=== PATIENT | female | born 1950 | race Caucasian/White ===

== ENCOUNTER 2021-09-19 21:45 | Inpatient (IN) | payer MEDICARE ==
[~2021-09-19] VITALS: Ht 157.5 cm; Wt 54.0 kg
--- NOTE | 2021-09-19 23:12 | NUR ---
BY WC TO ROOM
[2021-09-20 00:05] LABS: HEMOGLOBIN 13.9 g/dl (12.0-16.0); IMMATURE GRANULOCYTES 0.4 % (0.0-5.0); MEAN CELL VOLUME 100.7 fL CALC (80.0-100.0); MEAN CORPUSCULAR HGB 31.1 pG CALC (26.0-32.0); MEAN CORPUSCULAR HGB CONC 30.9 g/dL CAL (32.0-36.0); NEUT# 12.2 thou/uL (2.00-7.15); RED BLOOD COUNT 4.47 mill/uL (4.20-5.60); RED CELL DISTRI WIDTH 14.3 % (11.5-15.5)
--- NOTE | 2021-09-20 00:14 | NUR ---
PT LAYING WITH HOB FLAT. IV FLUIDS INFUSING.
[2021-09-20 00:18] LABS: ALBUMIN 4.7 g/dL (3.2-5.0); BILIRUBIN, TOTAL 0.5 mg/dL (0.0-1.4); CREATININE 4.2 mg/dL (0.5-1.0); MAGNESIUM 1.7 mg/dL (1.6-2.3); POTASSIUM 4.4 mmol/l (3.5-5.1); TOTAL PROTEIN 8.2 g/dL (6.3-8.2)
--- NOTE | 2021-09-20 01:02 | NUR ---
RESTING MORE COMFORTABLY. IV FLUIDS INFUSING
--- NOTE | 2021-09-20 01:41 | NUR ---
PT STATES SHE IS FEELING BETTER. SISTER AT BS.
--- NOTE | 2021-09-20 02:26 | NUR ---
PT RESTING WITH SISTER AT .
--- NOTE | 2021-09-20 03:00 | NUR ---
PT TRANSFERRED TO BED FROM STRETCHER.
--- NOTE | 2021-09-20 07:00 | NUR ---
RECEIVED REPORT FROM JANINE KEENAN
--- NOTE | 2021-09-20 08:00 | NUR ---
PT TOLERATED REGULAR DIET WITHOUT C/O NAUSEA OR VOMITING.
--- NOTE | 2021-09-20 09:07 | NUR ---
DR PHELPS AT BEDSIDE TO DISCUSS RESULTS AND POC
[2021-09-20 09:30] LABS: URINE BLOOD DIPSTICK NEGATIVE (NEGATIVE); URINE COLOR YELLOW; URINE GLUCOSE - DIPSTICK NEGATIVE (NEGATIVE); URINE KETONE TRACE mg/dL (NEGATIVE); URINE LEUK ESTERASE NEGATIVE (NEGATIVE); URINE PROTEIN - DIPSTICK TRACE mg/dL (NEG-TRACE); URINE SPECIFIC GRAVITY >=1.030; URINE UROBILINOGEN - DIPSTICK 0.2 E.U./dL (0.2)
[2021-09-20 09:43] LABS: URINE BILIRUBIN - DIPSTICK NEGATIVE (NEGATIVE); URINE NITRITE - DIPSTICK NEGATIVE (Negative)
--- NOTE | 2021-09-20 10:17 | NUR ---
REPORT CALLED TO SHLOMO KEENAN
--- NOTE | 2021-09-20 10:25 | NUR ---
TO MED SURG VIA BED.
[2021-09-20 10:46] VITALS: BP 98/53
--- NOTE | 2021-09-20 11:04 | NUR ---
REPORT RECEIVED FROM EUGENE IN ED, PT ARRIVED ON UNIT @ 1030 TRANSPORTED VIA BED AND SETTLED IN ROOM, ALERT AND ORIENTED X 4, ORIENTED TO ROOM AND CALL CLEMENTE C/O DULL ACHING ABD PAIN @ 5, REPORTED HSD EPISODES OF DIARRHEA THIS AM, IVF INFUSING, WILL CONTINUE TO MONITOR.
[2021-09-20 15:48] VITALS: BP 98/61
--- NOTE | 2021-09-20 16:15 | NUR ---
CONTINUES WITH DIARRHEA, ASSISTED TO BR AT THIS TIME, FAMILY MEMBER VISITING, WILL CONTINUE TO MONITOR.
--- NOTE | 2021-09-20 17:58 | NUR ---
PT REPORTS SHE IS O2 DEPENDENT AT HOME AND USES 2L VIA NC AT HS NEEDED, STILL SMOKES, EDUCATED ON HABIT AND DANGERS OF USING O2 WHILE SMOKING, STATES UNDERSTANDING.
[2021-09-20 19:00] VITALS: BP 98/57
--- NOTE | 2021-09-20 19:55 | NUR ---
PATIENT RESTING IN BED WITH O2 VIA NASAL CANNULA IN PLACE AT 2LPM. O2 SAT IS 95%. PATIENT VOMITTED 200CC OF GREEN FLUID. MEDICATED WITH ZOFRAN 4MG IVP FOR NAUSEA,. IV SITE TO LAC INTACT WITH IVF PATENT AND INFUSING AT 75CC/HR. SITE IS HEALTHY AT THIS TIME. CALL LIGHT IN REACH. WILL CONT TO MONITOR.
--- NOTE | 2021-09-20 21:35 | NUR ---
PATIENT RESTING IN BED WITH O2 VIA NASAL CANNULA IN PLACE. O2 SAT IS 95% AT THIS TIME. PATIENT STATES THAT DOES USE O2 AT HOME AT HS AND DOES USE NEB TREATMENT PRN WELL. PATIENT WITH SLIGHT EXP WHEEZE AT THIS TIME AND REQUESTING TREATMENT. DR. PHELPS CALLED AND ORDER RECIEVED. RT CALLED FOR TX. PATIENT STATES THAT HAD SLIGHT IMPROVEMENT WITH THE N AUSEA AFTER THE ZOFRAN EARLIER. PATIENT STATES THAT SHE DOES HAVE CHRONIC DIARRHEA BUT THIS IS EVEN WORSE THAN NORMAL. SAFETY PRECAUTIONS REINFORCED. CALL LIGHT IN REACH. WILL CONT TO MONITOR.
--- NOTE | 2021-09-21 00:55 | NUR ---
PATIENT APPEARS SLEEPING AT THIS TIME WITH EYES CLOSED AND RESPS EVEN ANE UNLABORED. O2 VIA NASAL CANNULA IN PLACE. IVF PATENT AND INFUSING VIA LAC SITE AT 75CC/HR. CALL LIGHT IN REACH. WILL CONT TO MONITOR.
[2021-09-21 04:00] VITALS: BP 109/68
--- NOTE | 2021-09-21 04:43 | NUR ---
PATIENT RESTING IN BED AT TH IS TIME WITH O2 VIA NASAL CANNULA IN PLACE. IVF PATENT AND INFUSING VIA LAC SITE. LAB WORK DRAWN ORDERED. PATIENT CONT TO HAVE DIARRHEA AND NAUSEA. MEDICATED WITH ZOFRAN 4MG IVP FOR NAUSEA AND WITH PEPTOBISMOL TABLET FOR DIARRHEA AND INDIGESTION. PROVIDED WITH HOT TEA PER PATIENT REQUEST. SAFETY PRECAUTIONS REINFORCED. CALL LIGHT IN REACH. WILL CONT TO MONITOR.
[2021-09-21 06:28] LABS: IMMATURE GRANULOCYTES 0.2 % (0.0-5.0); MEAN CELL VOLUME 101.6 fL CALC (80.0-100.0); MEAN CORPUSCULAR HGB 31.6 pG CALC (26.0-32.0); MEAN CORPUSCULAR HGB CONC 31.2 g/dL CAL (32.0-36.0); NEUT# 7.62 thou/uL (2.00-7.15); RED BLOOD COUNT 3.76 mill/uL (4.20-5.60); RED CELL DISTRI WIDTH 14.2 % (11.5-15.5)
[2021-09-21 06:29] LABS: HEMATOCRIT 38.2 % (37.0-47.0); HEMOGLOBIN 11.9 g/dl (12.0-16.0)
[2021-09-21 06:31] LABS: CREATININE 2.2 mg/dL (0.5-1.0); MAGNESIUM 1.6 mg/dL (1.6-2.3); POTASSIUM 3.6 mmol/l (3.5-5.1)
--- NOTE | 2021-09-21 07:30 | NUR ---
RECIEVED REPORT FROM REE AUGUSTINE
[2021-09-21 08:42] VITALS: BP 124/76
--- NOTE | 2021-09-21 08:42 | NUR ---
PT RESTING IN SEMI FOWLERS POSITION. PT IS A/OX3. ASSESSMENT AND VITALS COMPLETED. BP 124/76, HR 88, O2 96% ON ROOM AIR. RESPIRATIONS ARE EVEN AND UNLABORED. WHEEZING PRESENT UPON ASCULTATION. BOWEL SOUNDS ARE ACTIVE. HEART RHTHM NORMAL. #22G LAC INFUSIG WITH IVF PER ORDER, SITE REMAINS HEALTHY AND PATENT. SKIN INTACT. PT COMPLAINS OF NAUSEA, MEDICATION YET DUE. MD TO BE INFORMED. PT INFORMED OF NEEDED STOOL. ALL SAFETY PRECAUTIONS ARE IN PLACE WITH CALL LIGHT IN REACH. WILL CONTINUE TO MONITOR.
--- NOTE | 2021-09-21 09:00 | NUR ---
DR PHELPS AND ELKE,ANRP AT BEDSIDE
[2021-09-21] MEDS ORDERED: LIPITOR80 M1 PO (09:46)
[2021-09-21] MEDS ORDERED: PROTONIX40 M2 PO (09:47)
[2021-09-21] MEDS ORDERED: ALENDRONATE SOD70 MG PO (09:48)
[2021-09-21] MEDS ORDERED: LEVOTHYROXIN75 MC1 PO (09:48)
[2021-09-21] MEDS ORDERED: CYCLOBENZAPRINE10 MG PO (09:49)
[2021-09-21] MEDS ORDERED: IPRATROPIU0.5 MG/3 M IN (09:52)
[2021-09-21] MEDS ORDERED: BREZTRI AEROSPH1 AER PO (09:54)
[2021-09-21] MEDS ORDERED: VENTOLIN HFA IN (09:54)
[2021-09-21] MEDS ORDERED: MUCINEX600 MG PO (09:55)
[2021-09-21] MEDS ORDERED: TYLENOL 8 HOUR650 MG PO (09:56)
[2021-09-21] MEDS ORDERED: B COMPLEX +C PO (09:57)
[2021-09-21] MEDS ORDERED: CENTRUM SILVER1 TA1 PO (09:58)
[2021-09-21] MEDS ORDERED: GABAPENTIN300 M2 PO (09:58)
[2021-09-21] MEDS ORDERED: OCUVITE PO (09:59)
--- NOTE | 2021-09-21 11:00 | NUR ---
ZOFRAN ADMINSTERED AT THIS TIME.
[2021-09-21 14:00] VITALS: BP 91/57
--- NOTE | 2021-09-21 14:31 | NUR ---
PT REQUESTING BREATHING TREATMENT. RT AT BEDSIDE
--- NOTE | 2021-09-21 15:39 | NUR ---
PT RESTING IN SEMI FOWLERS POSITION. RESPIRATIONS ARE EVEN AND UNLABORED ON 2L NC. #22G LAC INFUSING WITH IVF PER ORDER, SITE REMAINS HEALTHY AND PATENT. PT REQUEST NICOTINE PATCH. KIARA BEDOYA INFORMED. PT DENIES OF ANY ADDITIONAL NEEDS. ALL SAFETY PRECAUTIONS ARE IN PLACE WITH CALL LIGHT IN REACH. WILL CONTINUE TO MONITOR.
--- NOTE | 2021-09-21 18:18 | NUR ---
DIET CHANGED TO CLEAR LIQUID PER PT REQUEST
--- NOTE | 2021-09-21 18:50 | NUR ---
REPORT RECEIEVED FROM Gladis MARTIN LPN
[2021-09-21 19:00] VITALS: BP 92/49
[2021-09-22 04:23] VITALS: BP 99/59
[2021-09-22 05:16] LABS: HEMATOCRIT 34.9 % (37.0-47.0); MEAN CELL VOLUME 99.1 fL CALC (80.0-100.0); MEAN CORPUSCULAR HGB 31.3 pG CALC (26.0-32.0); MEAN CORPUSCULAR HGB CONC 31.5 g/dL CAL (32.0-36.0); RED BLOOD COUNT 3.52 mill/uL (4.20-5.60)
[2021-09-22 05:31] LABS: CREATININE 1.6 mg/dL (0.5-1.0); MAGNESIUM 1.6 mg/dL (1.6-2.3); POTASSIUM 2.9 mmol/l (3.5-5.1)
--- NOTE | 2021-09-22 06:10 | NUR ---
PATIENT UP TO THE BATHROOM AT THIS TIME.
--- NOTE | 2021-09-22 07:00 | NUR ---
RECIEVED REPORT FROM REE HUERTAS
[2021-09-22 07:17] VITALS: BP 92/53
--- NOTE | 2021-09-22 07:17 | NUR ---
PT RESTING IN SEMI FOWLERS POSITION. PT IS A/OX3. ASSESSMENT AND VITALS COMPLETED. BP 92/53, HR 100, O2 96% ON 2L NC.RESPIRATIONS ARE EVEN AND UNLABORED WITH NO DISTRESS NOTED. LUNG SOUNDS ARE DIMINISHED TO LOWER LOBES. HEART RHYTHM NORMAL. BOWEL SOUNDS ARE ACTIVE, PT REPORTS LOOSE STOOLS THIS MORNING. #22G LAC INFUSING WITH IVF PER ORDER, SITE REMAINS HEALTHY AND PATENT. SKIN INTACT. PT DENIES OF ANY PAINS OR DISCOMFORTS AT THIS TIME. ALL SAFETY PRECAUTIONS ARE IN PLACE WITH CALL LIGHT IN REACH. WILL COTINUE TO MONITOR.
[2021-09-22] MEDS ORDERED: WELLBUTRIN XL150 MG PO (08:03)
--- NOTE | 2021-09-22 09:25 | NUR ---
DR PHELPS AND ELKE,ANRP AT BEDSIDE
[2021-09-22] MEDS ORDERED: BUDESONIDE ER9 MG PO (09:47)
[2021-09-22] MEDS ORDERED: QUESTRAN4 G1 PO (09:49)
--- NOTE | 2021-09-22 11:06 | NUR ---
FAXED RXS TO [facility] [place] BUDESONIDE ER 9MG TAB PO DAILY #42 AND CHOLESTYRAMINE 4G POWDER PACKET TID #90. PER HEMA, USE POM WHEN FILLED AND FAMILY SUPPLIES.
--- NOTE | 2021-09-22 12:35 | NUR ---
PT RESTING IN SEMI FOWLERS POSITION. RESPIRATIONS EVEN AND UNLABORED. PT REPORTS DRY MOUTH. LOZENAGE OFFERED. PT REFUSTED DENTAL SWABS PROVIDED. PT DENIES OF ANY NAUSEA. #22G LAC REMAINS PATENT. ADDITIONAL ALBERT PADS PROVIDED. PT DENIES OF ANY ADDITIONAL NEEDS. ALL SAFETY PRECAUTIONS ARE IN PLACE WITH CALL LIGHT IN REACH. WILL CONTINUE TO MONITOR.
--- NOTE | 2021-09-22 15:00 | NUR ---
#22g lac dislodged with cathn still intact. #22g rac started, site apper healthy and patent. ivf infusing per order, site remains healthy and patent.
[2021-09-22 15:09] VITALS: BP 102/63
--- NOTE | 2021-09-22 15:43 | NUR ---
ANTHONY TRETAMENT ADMINISTERED BY PASTE MIXER LIQUID DUE TO RT NOT AVAILABLE AT THIS TIME.
--- NOTE | 2021-09-22 19:00 | NUR ---
1900-REPORT RECEIVED FROM DAYSHIFT NURSE VIA SBAR FORMAT. FOUND PATIENT RESTING IN BED, NO PAIN OR NEEDS REPORTED, RESP ARE EVEN AND UNLABORED, ENCOURAGED TO CALL IF NEEDED, VOICES UNDERSTANDING, CALL CORNEJO AT REACH.
[2021-09-22 20:00] VITALS: BP 108/56
--- NOTE | 2021-09-22 20:10 | NUR ---
PT IS RESTING IN BED, NO N/V NOTED, DENIES TOILETING NEEDS AT THIS TIME, WILL RESP ARE EVEN AND UNLABORED, CALL CORNEJO AT REACH.
--- NOTE | 2021-09-23 00:01 | NUR ---
PT IS RESTING IN BED, NO S/S OF DISTRESS NOTED, CALL CORNEJO AT REACH. WILL FOLLOW UP CLOSELY.
[2021-09-23 04:00] VITALS: BP 96/59
--- NOTE | 2021-09-23 04:16 | NUR ---
FINGERSTICK GLUCOSE CHECK 124
--- NOTE | 2021-09-23 05:14 | NUR ---
PATIENT ONLY HAD X1 BM, WATERY/DIARRHEA, NO N/V REPORTED, WILL CONTINUE TO MONITOR.
--- NOTE | 2021-09-23 05:24 | NUR ---
PT IS RESTING IN BED, LESTER HUGGER ON, NO S/S OF DISTRESS NOTED, RESP ARE EVEN AND UNLABORED ON 2L VIA NC. NO NEEDS REPORTED, CALL CORNEJO AT REACH.
--- NOTE | 2021-09-23 06:55 | NUR ---
REPORT GIVEN TO DAYSHIFT NURSE VIA SBAR FORMAT; PT IS STABLE.
[2021-09-23 07:19] LABS: HEMATOCRIT 33.4 % (37.0-47.0); HEMOGLOBIN 10.8 g/dl (12.0-16.0); MEAN CELL VOLUME 97.7 fL CALC (80.0-100.0); MEAN CORPUSCULAR HGB 31.6 pG CALC (26.0-32.0); MEAN CORPUSCULAR HGB CONC 32.3 g/dL CAL (32.0-36.0); RED BLOOD COUNT 3.42 mill/uL (4.20-5.60); RED CELL DISTRI WIDTH 14.2 % (11.5-15.5)
[2021-09-23 07:25] LABS: CREATININE 1.1 mg/dL (0.5-1.0); MAGNESIUM 1.5 mg/dL (1.6-2.3); POTASSIUM 3.5 mmol/l (3.5-5.1)
--- NOTE | 2021-09-23 08:00 | NUR ---
REPORT RECEIVED FROM REE ARCEO. PT RESTING SEMI-FOWLERS. DENIES PAIN, SOB OR DISCOMFORT. VSS. CALL LIGHT WITHIN REACH. INSTRUCTED PT TO CALL FOR ASSISTANCE, VERBALIZES UNDERSTANDING.
[2021-09-23 09:15] VITALS: BP 102/59
--- NOTE | 2021-09-23 12:00 | NUR ---
PT RESTING IN BED. GIVEN NEW MEDICATION FOR COLLITIS. FAMILY AT BS. DENIES PAIN OR SOB. CALL LIGHT WITHIN REACH. INSTRUCTED PT TO CALL FOR ASSISTANCE, VERBALIZES UNDERSTANDING.
[2021-09-23 14:35] VITALS: BP 113/65
--- NOTE | 2021-09-23 17:00 | NUR ---
PT FAMILY LEAVING, STATES TOTAL OF 6 BM'S LIQUID TODAY. DENIES PAIN SOB OR DISCOMFORT. CALL LIGHT WITHIN REACH. INSTRUCTED PT TO CALL FOR ASSISTANCE. VERBALIZES UNDERSTANDING.
[2021-09-23 20:00] VITALS: BP 159/58
--- NOTE | 2021-09-23 20:18 | NUR ---
1900-REPORT RECEIVED FROM DAYSKSFT NURSE VIA SBAR FORMAT. FOUND PATIENT STABLE, NO PAIN OR NEEDS VOICED AT THIS TIME, RESP ARE EVEN AND UNLABORED, CALL CORNEJO AT REACH.
--- NOTE | 2021-09-23 20:19 | NUR ---
NO COMPLAINTS VOICED; TURNED ON LESTER HUGGER PER PT REQUEST. WILL MONITOR CLOSELY.
--- NOTE | 2021-09-23 21:15 | NUR ---
MEDICATED WITH PM MEDS; PT C/O OF MULTIPLE BOUTS OF DIARRHEA, REQUESTED LAMOTIL AND TYLENOL FOR GENERALIZED PAIN, C/O PRODUCTIVE COUGH WITH WHITE SPUTUM, OFFERED A COUGH DROP, REFUSED, MINIMAL REDNESS NOTED TO UVULA AND BACK OF THROAT. PATIENT VOICE IS BECOMING VERY SOFT, STATES IS D/T THE SORE THROAT, DENIES ANY S/S OF SOB, RESP ARE EVEN AND UNLABORED, WILL FOLLOW UP CLOSELY, CALL CORNEJO AT REACH.
--- NOTE | 2021-09-24 00:43 | NUR ---
RESTING IN BED QUIETLY, LESTER VILA ON, NO COMPLAINTS VOICED, RESP ARE EVEN AND UNLABORED, CALL CORNEJO AT REACH.
[2021-09-24 04:00] VITALS: BP 86/46
--- NOTE | 2021-09-24 04:07 | NUR ---
PT ASYMPTOMATIC HYPOTENSIVE 86/46, HAS NS INFUSING AT 75ML/HR, NOTIFIED DR. PHELPS, WAITING FOR NEW ORDERS.
[2021-09-24 04:30] VITALS: BP 89/52
--- NOTE | 2021-09-24 05:07 | NUR ---
NO NEW ORDERS RECEIVED FOR ASYMPTOMATIC HYPOTENSIVE, PT HAS NS AT 75ML/HR; HAD A BM LAST NIGHT, WATERY DIARRHEA, NO MORE BM'S REPORTED, X1 ASSIST MINIMUM, BSC.
[2021-09-24 05:15] VITALS: BP 92/51
--- NOTE | 2021-09-24 05:24 | NUR ---
92/51 BP RECHECK, NO S/S OF DISTRESS NOTED, RESP ARE EVEN AND UNLABORED, CALL CORNEJO AT REACH.
[2021-09-24 05:47] LABS: HEMATOCRIT 32.5 % (37.0-47.0); HEMOGLOBIN 10.4 g/dl (12.0-16.0); MEAN CELL VOLUME 98.8 fL CALC (80.0-100.0); MEAN CORPUSCULAR HGB 31.6 pG CALC (26.0-32.0); RED BLOOD COUNT 3.29 mill/uL (4.20-5.60); RED CELL DISTRI WIDTH 14.3 % (11.5-15.5)
[2021-09-24 06:03] LABS: CREATININE 1.1 mg/dL (0.5-1.0); POTASSIUM 3.4 mmol/l (3.5-5.1)
[2021-09-24 08:17] VITALS: BP 111/60
--- NOTE | 2021-09-24 13:18 | NUR ---
PT REPORTS THROWING UP LUNCH, LARGE AMOUNT OF VOMITUS. PT ALSO ADMITS TO ONLY HAVING TWO BM'S SINCE THIS SHIFT START.
[2021-09-24 15:28] VITALS: BP 96/50
--- NOTE | 2021-09-24 18:05 | NUR ---
PT DENIES ANY FURTHER BM'S TODAY. ESTIMATED TWO THIS SHIFT DURATION. NO FURTHER VOMITING. ABLE TO HOLD HALF A SANDWHICH DOWN FOR DINNER. CALL LIGHT WITHIN REACH. INSTRUCTED PT TO CALL FOR ASSISTANCE, VERBALIZES UNDERSTANDING.
--- NOTE | 2021-09-24 19:00 | NUR ---
REPORT REC FROM Martin TOTH RN
--- NOTE | 2021-09-24 20:32 | NUR ---
PT IN BED WATCHING TV. COARSE LOWER LOBES AND DIMINISHED UPPER LOBES UPON AUSCULTATION. PT REQUESTED A BREATHING TREATMENT WHICH WAS GIVEN BY RESPIRATORY THERAPIST. HEART SOUNDS NORMAL UPON AUSCULTATION. BOWEL SOUNDS ACTIVE X4 QUADRANTS. NO DISTRESS AT THIS TIME. CALL LIGHT WITHIN REACH.
[2021-09-24 21:10] VITALS: BP 98/60
--- NOTE | 2021-09-24 21:30 | NUR ---
PT REQUESTED FRESH WATER. PT C/O SORE THROAT AND WAS MEDICATED. NO DISTRESS NOTED. CALL LIGHT WITHIN REACH.
[2021-09-25 04:15] VITALS: BP 103/61
--- NOTE | 2021-09-25 05:06 | NUR ---
PT SLEEPING IN BED. PT AWAKEN TO RECEIVED IV FLUIDS. NO DISTRESS NOTED. PT DENIES PAIN AT THIS MOMENT. CALL LIGHT WITHIN REACH.
[2021-09-25 05:33] LABS: HEMATOCRIT 33.2 % (37.0-47.0); HEMOGLOBIN 10.6 g/dl (12.0-16.0); MEAN CELL VOLUME 98.2 fL CALC (80.0-100.0); MEAN CORPUSCULAR HGB 31.4 pG CALC (26.0-32.0); MEAN CORPUSCULAR HGB CONC 31.9 g/dL CAL (32.0-36.0); RED BLOOD COUNT 3.38 mill/uL (4.20-5.60); RED CELL DISTRI WIDTH 14.1 % (11.5-15.5)
[2021-09-25 05:43] LABS: ANION GAP 15 (6-22 (CALC)); BUN 6 mg/dL (8-23); BUN/CREATININE RATIO 6 (12-20 (CALC)); CHLORIDE 106 mmol/l (95-108); GFR 54 ML/MIN (>=60 (CALC)); GFR FOR AFR.AMER. > 60 ML/MIN (>=60 (CALC)); MAGNESIUM 1.6 mg/dL (1.6-2.3); POTASSIUM 3.5 mmol/l (3.5-5.1); SODIUM 140 mmol/l (137-146)
[2021-09-25 05:44] LABS: CARBON DIOXIDE 23 mmol/l (22-30)
--- NOTE | 2021-09-25 06:13 | NUR ---
PT RESTING IN BED. #20G IV REMOVED FROM RIGTH FOREARM DUE TO SMALL INFILTRATION. #22G IV ON LEFT AC REMOVED SINCE IT WAS UNABLE TO FLUSH. NEW #[address] ON LEFT ARM. NEW IV PATENT AND HEALTHY. PT TOLERATED. CALL LIGHT WITHIN REACH.
[2021-09-25 07:56] VITALS: BP 100/61
--- NOTE | 2021-09-25 07:56 | NUR ---
ASSESSMENT DONE. PATIENT IS ALERT AND ORIENT X3. PATIENT DENIES PAIN. PATIENT HAD TAKEN HER O2 OFF. PATIENT O2 SATS 88% RA. APPLIED THE O2 AT 2L VIA NC. PATIENT SATS 94%. LUNGS SOUND COARSE. PATIENT DENIES NEEDS. CALL LIGHT IN REACH.
--- NOTE | 2021-09-25 12:09 | NUR ---
PATIENT IS RESTING IN BED WITH NO DISTRESS NOTED. PATIENT DENIES NEEDS AT THIS TIME. CALL LIGHT IN REACH.
[2021-09-25 15:00] VITALS: BP 111/60
--- NOTE | 2021-09-25 16:28 | NUR ---
Discharge instructions given. Patient verbalizes understanding of same. Discharged in stable condition via Wheelchair to Home with friend. All belongings sent with pt.
== END 2021-09-25 16:38 | disposition home or self-care (01) | DRG 684 ==
LOC: ED 21:45 → ED-I 09-20 00:18 → ED 09-20 02:56 → ED-I 09-20 02:57 → MS2 09-20 07:46 → ED-I 09-20 07:46 → MS2 09-20 09:13
PROVIDERS: Emergency Medicine; Nurse Practitioner; ADMIT Internal Medicine; ATTEND Internal Medicine
DX: N17.9 Acute kidney failure, unspecified (principal); E86.0 Dehydration; K52.831 Collagenous colitis; J44.9 Chronic obstructive pulmonary disease, unspecified; N18.9 Chronic kidney disease, unspecified; E87.6 Hypokalemia; E83.42 Hypomagnesemia; F17.210 Nicotine dependence, cigarettes, uncomplicated; T44.5X6A Underdosing of predominantly beta-adrenoreceptor agonists, initial encounter; Z91.120 Patient's intentional underdosing of medication regimen due to financial hardship; Z20.822 Contact with and (suspected) exposure to COVID-19
CPT/HCPCS: J3475